=== PATIENT | female | born 1940 | race Caucasian/White ===

== ENCOUNTER 2021-08-12 16:36 | Inpatient (IN) | payer MEDICARE, OTHER ==
[~2021-08-12] VITALS: Ht 162.6 cm; Wt 66.3 kg
[2021-08-12 18:02] LABS: HEMOGLOBIN 10.8 gm/dl (12.3-15.3); RED BLOOD COUNT 3.79 M/UL (4.00-5.10); WHITE BLOOD COUNT 7.2 K/UL (4.5-11.0)
[2021-08-12 18:49] LABS: BUN/CREATININE RATIO 33 (0-10)
[2021-08-13] MEDS ORDERED: ISOSORBIDE MONO30 MG PO (11:20)
[2021-08-13] MEDS ORDERED: ATORVASTATIN CA20 MG PO (11:21)
[2021-08-13] MEDS ORDERED: LEVOFLOXACIN500 MG PO (11:21)
[2021-08-13] MEDS ORDERED: DOXAZOSIN MESYLA1 MG PO (11:21)
[2021-08-13] MEDS ORDERED: MONTELUKAST SOD10 MG PO (11:22)
[2021-08-13] MEDS ORDERED: POTASSIUM20 MEQ/15 PO (11:22)
[2021-08-13] MEDS ORDERED: LOSARTAN POTAS100 MG PO (11:22)
[2021-08-13] MEDS ORDERED: DILTIAZEM 24HR360 MG PO (11:23)
[2021-08-13] MEDS ORDERED: PROTONIX40 MG PO (11:23)
[2021-08-13] MEDS ORDERED: LEVOTHYROXINE100 MCG PO (11:24)
[2021-08-13] MEDS ORDERED: MAGNESIUM400 M2 PO (11:24)
[2021-08-13] MEDS ORDERED: SYMBICORT 80-10.2 GM INH (11:24)
[2021-08-13] MEDS ORDERED: BUMETANIDE1 MG PO (11:24)
[2021-08-13] MEDS ORDERED: MULTIVITAMIN1 EACH PO (11:25)
[2021-08-13] MEDS ORDERED: METAMUCIL FIBE3.4 GM PO (11:25)
[2021-08-13 13:43] LABS: HEMOGLOBIN 9.5 gm/dl (12.3-15.3); RED BLOOD COUNT 3.48 M/UL (4.00-5.10); WHITE BLOOD COUNT 6.3 K/UL (4.5-11.0)
[2021-08-13 13:59] LABS: BUN/CREATININE RATIO 22 (0-10)
[2021-08-14 07:24] LABS: BUN/CREATININE RATIO 25 (0-10)
== END 2021-08-14 16:05 | disposition home or self-care (01) | DRG 309 ==
LOC: ER1 16:36 → CDU 21:18 → PROG CARE 21:18
PROVIDERS: Internal Medicine; Nurse Practitioner; ADMIT Internal Medicine
PROC: B24BZZZ Ultrasonography of Heart with Aorta (ICD-10-PCS; principal; 2021-08-13)
DX: I48.0 Paroxysmal atrial fibrillation (principal); E44.0 Moderate protein-calorie malnutrition; J90 Pleural effusion, not elsewhere classified; N39.0 Urinary tract infection, site not specified; Z20.822 Contact with and (suspected) exposure to COVID-19; I25.10 Atherosclerotic heart disease of native coronary artery without angina pectoris; E78.5 Hyperlipidemia, unspecified; I11.0 Hypertensive heart disease with heart failure; I50.9 Heart failure, unspecified; E11.9 Type 2 diabetes mellitus without complications; J44.9 Chronic obstructive pulmonary disease, unspecified; K57.90 Diverticulosis of intestine, part unspecified, without perforation or abscess without bleeding; Z95.5 Presence of coronary angioplasty implant and graft; Z87.440 Personal history of urinary (tract) infections; Z82.49 Family history of ischemic heart disease and other diseases of the circulatory system; Z83.3 Family history of diabetes mellitus; Z87.891 Personal history of nicotine dependence; Z79.01 Long term (current) use of anticoagulants; Z79.4 Long term (current) use of insulin; Z68.25 Body mass index [BMI] 25.0-25.9, adult
CPT/HCPCS: ECHO; 71045; 80048; 80053; 80061; 81001; 82550; 82553; 82607; 82746; 82962; 83036; 83540; 83550; 83605; 83690; 83874; 83880; 84439; 84443; 84484; 85025; 85027; 85045; 85379; 85610; 87086; 93005; 93306; 94640; 94664; 94760; 96374; 96375; 97161; 97166; 97530; 97530-GP-CQ; 99285; J0696; J2405; Q9967; U0002